=== PATIENT | female | born 1985 | race Caucasian/White ===

== ENCOUNTER → 2025-04-26 | Outpatient (CLI) | payer OTHER ==
--- NOTE | 2025-04-26 13:43 | RADIOLOGY REPORT ---
CLINICAL INDICATION: EFFUSION, RIGHT ANKLE COMPARISON: None TECHNIQUE: Multiplanar, multisequence MRI of the right ankle was performed without intravenous contr ast. Contrast: None INTERPRETATION: Bones: No evidence of acute fracture. No evidence of marrow replacing lesion. Alignment: Unremarkable. Ligaments: The anterior talofibular ligament is intact. The posterior talofibular ligament is intact. The calcaneofibular ligament is intact. The inferior tibiofibular ligaments are intact. The visualiz ed portions of the deltoid and spring ligaments are intact. Tendons:The Achilles tendon is intact. The peroneal tendons are intact. The posterior tibialis, fle xor hallucis longus and flexor digitorum longus tendons are intact. The dorsal extensor tendons are intact. Plantar Fascia: The medial cord of the plantar fascia is intact. Bursae: The retroachilles bursa is not fluid distended. The retrocalcaneal bursa is not fluid diste nded. Mass/Fluid: Small ankle joint effusion. No mass or fluid in the sinus tarsi. Muscles: Intrinsic muscles of the foot are unremarkable IMPRESSION: 1. Small ankle joint effusion in the right ankle. 2. No acute bone, tendon or ligamentous injury. HS:Y
== END | disposition home or self-care (01) ==
LOC: MRI02 10:30
PROVIDERS: ATTEND Podiatrist Foot & Ankle Surgery
DX: M25.471 Effusion, right ankle (principal); M25.372 Other instability, left ankle
CPT/HCPCS: 73721